=== PATIENT | female | born 2005 | race Caucasian/White ===

== ENCOUNTER 2024-11-07 12:48 | Emergency (ER) | payer OTHER, SELFPAY ==
[2024-11-07 12:53] VITALS: BP 131/87; PULSE 73; TEMP 36.7; O2SAT 98; BMI 41.2
--- NOTE | 2024-11-07 13:17 | ED_ITS ---
HPI - URI/Sore Throat General Chief Complaint: Upper Respiratory Infection Stated Complaint: URTI COMPLAINTS, ABDOMINAL PAIN Time Seen by Provider: 11/07/24 13:16 Source: patient Limitations: no limitations History of Present Illness HPI Narrative: 19-year-old female presents to the emergency department for cough and sore throat and nausea. She has been sick since yesterday. A family member has pneumonia. She has not had a known fever and has not had hemoptysis. Related Data Previous Rx's ?Medication ?Instructions ?Recorded ondansetron 4 mg disintegrating 4 mg PO Q6H PRN nausea and 11/07/24 tablet vomiting #20 tabs Allergies Allergy/AdvReac Type Severity Reaction Status Date / Time sulfamethoxazole (From AdvReac Mild Hives Verified 11/07/24 12:53 Bactrim) trimethoprim (From Bactrim) AdvReac Mild Hives Verified 11/07/24 12:53 Review of Systems ROS Narrative A ten point review of systems is negative except as noted above. PFSH PFSH Social History Little interest or pleasure in doing things: not at all Feeling down, depressed, or hopeless: not at all Exam Narrative Exam Narrative: Nurses note and vital signs reviewed and patient is not hypoxic. General: The patient appears well and in no apparent distress. Patient is resting comfortably on cart. Skin: Warm, dry, no pallor noted. There is no rash noted. Head: Normocephalic, atraumatic Eye: Normal conjunctiva, no drainage Ears, Nose, Mouth, and Throat: oral mucosa is moist. Nares patent. No pharyngeal erythema or exudate. Cardiovascular: Regular Rate and Rhythm Respiratory: Patient is in no distress, no accessory muscle use, lungs are clear to auscultation, no wheezing, rales or rhonchi Back: non-tender GI: Soft and nontender Musculoskeletal: The patient has no evidence of calf tenderness, no pitting edema, symmetrical pulses noted bilaterally Neurological: A&O, normal speech Psychiatric: Cooperative Constitutional Vital Signs, click to edit/add: Last Vital Signs Temp 98.1 F 11/07/24 12:53 Pulse 73 11/07/24 12:53 Resp 18 11/07/24 12:53 BP 131/87 11/07/24 12:53 Pulse Ox 98 11/07/24 12:53 O2 Del Method Room Air 11/07/24 12:53 Course Vital Signs Vital signs: Vital Signs Temperature 98.1 F 11/07/24 12:53 Pulse Rate 73 11/07/24 12:53 Respiratory Rate 18 11/07/24 12:53 Blood Pressure 131/87 11/07/24 12:53 Pulse Oximetry 98 11/07/24 12:53 Oxygen Delivery Method Room Air 11/07/24 12:53 Temperature 98.1 F 11/07/24 12:53 Pulse Rate 73 11/07/24 12:53 Respiratory Rate 18 11/07/24 12:53 Blood Pressure 131/87 11/07/24 12:53 Pulse Oximetry 98 11/07/24 12:53 Oxygen Delivery Method Room Air 11/07/24 12:53 MDM - URI/Sore Throat MDM Narrative Medical decision making narrative: Her workup is negative here. Strep, COVID, influenza, and chest x-ray are negative. My clinical impression is that she has a viral illness. Treatment diagnosis and follow-up were discussed with the patient. Differential Diagnosis Differential diagnosis: Likely upper respiratory infection, viral infection, influenza and other (COVID, pneumonia) Lab Data Attestation: I reviewed the patient's lab results. Labs: Lab Results 11/07/24 Range/Units 13:20 WBC 7.1 (4.0-11.0) 10^3/uL RBC 4.52 (4.20-5.40) 10^6/uL Hgb 13.5 (12.0-16.0) g/dL Hct 41.1 (36.0-48.0) % MCV 90.9 (81.0-99.0) fL MCH 29.9 (26.7-34.0) pg MCHC 32.8 (29.9-35.2) g/dL RDW 13.1 (11.0-15.0) % Plt Count 247 (150-450) 10^3/uL MPV 10.7 (9.5-13.5) fL Neut % (Auto) 58.3 (43.0-75.0) % Lymph % (Auto) 31.3 (20.5-60.0) % [place]berry % (Auto) 8.2 (1.7-12.0) % Eos % (Auto) 1.4 (0.9-7.0) % Baso % (Auto) 0.4 (0.2-2.0) % Neut # (Auto) 4.1 (1.4-6.5) 10^3/uL Lymph # (Auto) 2.2 (1.2-3.8) 10^3/uL Newberry # (Auto) 0.6 (0.3-0.8) 10^3/uL Eos # (Auto) 0.1 (0.0-0.7) 10^3/uL Baso # (Auto) 0.0 (0.0-0.1) 10^3/uL Abs Immat Gran (auto) 0.03 (0.00-0.03) 10^3/uL Imm/Tot Granulo (auto) 0.4 (0.0-0.5) % Sodium 139 (136-145) mmol/L Potassium 4.1 (3.5-5.1) mmol/L Chloride 104 (98-107) mmol/L Carbon Dioxide 27.5 (21.0-32.0) mmol/L Anion Gap 11.6 BUN 12.0 (7.0-18.0) mg/dL Creatinine 0.75 (0.55-1.02) mg/dL Est GFR ( Amer) >60 (>=60 mL/min/1.73m^2) Est GFR (Non-Af Amer) >60 (>=60 mL/min/1.73m^2) BUN/Creatinine Ratio 16.0 Glucose 89 (74-106) mg/dL Calcium 8.6 (8.5-10.1) mg/dL Influenza Type A Ag Negative Influenza Type B Ag Negative SARS-CoV-2 Ag (CV2AG) Negative (NEGATIVE) Streptococcus Screen Negative Imaging Data Chest x-ray: Radiologist's impression: ITS Impressions Chest X-Ray 11/07/24 13:51 IMPRESSION: Low lung volumes, no acute disease. Electronically authenticated by: TAHMINA VINCENT Date: 11/07/2024 14:18 Discharge Plan Discharge Chief Complaint: Upper Respiratory Infection Clinical Impression: Upper respiratory infection Patient Disposition: Home, Self-Care Time of Disposition Decision: 14:48 Condition: Good Mode of Transportation: Private Vehicle Prescriptions / Home Meds: New ondansetron 4 mg tablet,disintegrating 4 mg PO Q6H PRN (Reason: nausea and vomiting) Qty: 20 0RF Print Language: Gibraltarian Instructions: Upper Respiratory Infection (ED) Referrals: Physician,Non-Staff, MD [Primary Care Provider] - 1 week
[2024-11-07 13:30] LABS: Basophils Percent Auto 0.4 % (0.2-2.0); Eosinophils Absolute Auto 0.1 10^3/uL (0.0-0.7); Eosinophils Percent Auto 1.4 % (0.9-7.0); Hematocrit 41.1 % (36.0-48.0); Hemoglobin 13.5 g/dL (12.0-16.0); Immature Granulocytes Abs Auto 0.03 10^3/uL (0.00-0.03); Immature Granulocytes Pct Auto 0.4 % (0.0-0.5); Lymphocytes Absolute Auto 2.2 10^3/uL (1.2-3.8); Lymphocytes Percent Auto 31.3 % (20.5-60.0); Mean Corpuscular HGB Conc 32.8 g/dL (29.9-35.2); Mean Corpuscular Hemoglobin 29.9 pg (26.7-34.0); Mean Corpuscular Volume 90.9 fL (81.0-99.0); Mean Platelet Volume 10.7 fL (9.5-13.5); Monocytes Absolute Auto 0.6 10^3/uL (0.3-0.8); Monocytes Percent Auto 8.2 % (1.7-12.0); Neutrophils Absolute Auto 4.1 10^3/uL (1.4-6.5); Neutrophils Percent Auto 58.3 % (43.0-75.0); Platelet Count 247 10^3/uL (150-450); Red Blood Count 4.52 10^6/uL (4.20-5.40); Red Cell Distribution Width 13.1 % (11.0-15.0); White Blood Count 7.1 10^3/uL (4.0-11.0)
[2024-11-07 13:38] LABS: Anion Gap 11.6; Calcium 8.6 mg/dL (8.5-10.1); Carbon Dioxide 27.5 mmol/L (21.0-32.0); Chloride 104 mmol/L (98-107); Estimated GFR (African America >60 (>=60 mL/min/1.73m^2); Estimated GFR (Non-African Ame >60 (>=60 mL/min/1.73m^2); Glucose 89 mg/dL (74-106); Potassium 4.1 mmol/L (3.5-5.1); Sodium 139 mmol/L (136-145)
[2024-11-07] MEDS: 0.9 % SODIUM CHLORIDE 1,000 ML 1000 ML IV (13:38)
[2024-11-07] MEDS: ONDANSETRON PF 4 MG/2 ML VIAL IV (13:38)
[2024-11-07 13:45] LABS: Influenza Virus A Antigen Negative; Influenza Virus B Antigen Negative; Internal Control Within Normal Limits; SARS-CoV-2 Ag NEGATIVE (NEGATIVE); Strep A Antigen Screen Negative
--- NOTE | 2024-11-07 13:51 | XR_ITS ---
The [address] [address] Patient Name: AKIKO PATHAK MRN: [id number] date: 2005 Sex: F Assigned Patient Location: ER Current Patient Location: ER Accession/Order Number: [id number] Exam Date: 11/07/2024 14:04 Report Date: 11/07/2024 14:18 At the request of: REJI MONTOYA Procedure: XR chest 1V EXAMINATION: XR chest 1V HISTORY: cough COMPARISON: 11/23/2020 TECHNIQUE: AP portable FINDINGS: LUNGS: No significant pulmonary parenchymal abnormalities. Low lung volumes VASCULATURE: No increased pulmonary vasculature. PLEURA: No pneumothorax, effusion, or pleural thickening. CARDIAC: No cardiomegaly or cardiac silhouette abnormality. MEDIASTINUM: No visible mass or adenopathy. BONES: No fracture or visible bone lesion. OTHER: Negative. XR/XR chest 1V IMPRESSION: Low lung volumes, no acute disease. Electronically authenticated by: TAHMINA VINCENT Date: 11/07/2024 14:18
[2024-11-08 17:29] LABS: BOX Test Reference Lab FIRELANDS
== END 2024-11-07 15:01 | disposition home or self-care (01) ==
PROVIDERS: Emergency Provider Emergency Medicine
DX: J06.9 Acute upper respiratory infection, unspecified (principal)
CPT/HCPCS: 36415; 71045; 80048; 85025; 87070; 87081; 87804; 87811; 87880; 96374; 99285; J2405